=== PATIENT | female | born 1950 | race Caucasian/White ===

== ENCOUNTER → 2024-12-29 | Outpatient (CLI) | payer MEDICARE, OTHER ==
--- NOTE | 2024-12-29 15:17 | CT ---
EXAMINATION TYPE: CT shoulder LT wo con DATE OF EXAM: 12/29/2024 COMPARISON: None CLINICAL INDICATION: Female, 74 years old with history of M19.012 PRIMARY OSTEOARTHRITIS. LEFT SHOULD ER; H, CT DLP: mGycm Automated exposure control for dose reduction was used. FINDINGS: There is marked thinning of the glenohumeral joint space with near [id number] configuration. There is marked hypertrophic spurring of the humeral head. There is mild joint space narrowing of the AC joint. There is no acute fracture or dislocation. There are no soft tissue abnormalities. IMPRESSION: Marked osteoarthritis of the glenohumeral joint No acute trauma. [facility], Workstation: [facility], 12/29/2024 3:15 PM
== END | disposition home or self-care (01) ==
LOC: RADCTMAIN 14:12
PROVIDERS: ATTEND Orthopaedic Surgery Sports Medicine
DX: M19.012 Primary osteoarthritis, left shoulder (principal)

== ENCOUNTER → 2024-12-29 | Outpatient (CLI) | payer MEDICARE, OTHER ==
[2024-12-29 15:40] LABS: INR 0.9 (<1.2); Partial Thromboplastin Time 23.3 sec (22.0-30.0); Prothrombin Time 10.6 sec (10.0-12.5)
[2024-12-29 18:00] LABS: HCT 29.3 % (37.2-46.3); MCH 25.9 pg (27.0-32.0); MCHC 30.7 g/dL (32.0-37.0); MCV 84.2 FL (80.0-97.0); Mean Platelet Volume 10.7 FL (9.5-12.2); NRBC Per 100 WBC 0 X 10*3/uL (0.00-0.01); Platelet Count 301 X 10*3/uL (140-440); RBC 3.48 X 10*6/uL (4.10-5.20); RDW 15.1 % (11.5-14.5); WBC 6.96 X 10*3/uL (4.50-10.00)
[2024-12-29 18:11] LABS: ALT 26 U/L (8-44); AST 31 U/L (13-35); Alkaline Phosphatase 114 U/L (41-126); Blood Urea Nitrogen 27.6 mg/dL (9.0-27.0); Chloride 108 mmol/L (96-109); Globulin 2.1 g/dL (1.6-3.3); Glucose 96 mg/dL (70-110); Potassium 4.6 mmol/L (3.5-5.5); Sodium 141 mmol/L (135-145); Total Bilirubin 0.2 mg/dL (0.3-1.2); Total Protein 6.1 g/dL (6.2-8.2)
== END | disposition home or self-care (01) ==
LOC: LABPAT 14:45
PROVIDERS: ATTEND Orthopaedic Surgery Sports Medicine
DX: Z01.818 Encounter for other preprocedural examination (principal); M19.012 Primary osteoarthritis, left shoulder; R94.31 Abnormal electrocardiogram [ECG] [EKG]; Z22.322 Carrier or suspected carrier of Methicillin resistant Staphylococcus aureus
CPT/HCPCS: 80053; 85027; 85610; 85730; 87070

== ENCOUNTER 2025-01-14 05:52 | Day surgery (SDC) | payer MEDICARE, OTHER ==
[~2025-01-14 05:52] MED LIST: LIDOCAINE 1% (10MG/ML) FOR IV START INTRADERMA PRN; ONDANSETRON 4 MG/2 ML VIAL IVP PRN; TRANEXAMIC 1,000 MG/100ML-NACL 1,000 MG in SALINE 1 100ML.BAG IVPB PRN
[2025-01-14] MEDS: IV FLUID CONTINUATION 1,000 ML IV ONE ×2 (07:00→09:27)
[2025-01-14] MEDS ORDERED: HYDROmorphone 0.5 MG/0.5 ML SYRINGE IVP PRN ×4 (07:00→07:24)
[2025-01-14] MEDS ORDERED: fentaNYL (PF) 50 MCG/ML 2 ML AMP IVP PRN (07:00)
[2025-01-14] MEDS: LACTATED RINGERS 1,000 ML IV SCH (07:04)
[2025-01-14] MEDS: ONDANSETRON 4 MG/2 ML VIAL IVP ONE (07:10)
[2025-01-14] MEDS: DEXAMETHASONE SOD PHOSPHATE 4 MG/ML 1 ML VIAL IV ONE (07:10)
[2025-01-14] MEDS: ACETAMINOPHEN TAB 500 MG TAB PO PRN (07:10)
[2025-01-14] MEDS: GABAPENTIN 300 MG CAP PO PRN (07:11)
[2025-01-14] MEDS: MELOXICAM 7.5 MG TAB PO PRN (07:11)
[2025-01-14] MEDS ORDERED: diphenhydrAMINE 25 MG CAP PO PRN (07:24)
[2025-01-14] MEDS ORDERED: ONDANSETRON 4 MG/2 ML VIAL IVP PRN (07:24)
[2025-01-14] MEDS ORDERED: SENNOSIDES-DOCUSATE SODIUM 1 EACH TAB PO PRN (07:24)
[2025-01-14] MEDS ORDERED: LACTATED RINGERS 1,000 ML IV SCH (07:30)
[2025-01-14] MEDS: MIDAZOLAM 2 MG/2 ML VIAL IV PRN (07:32)
[2025-01-14] MEDS ORDERED: LIDOCAINE 1% INJ 10MG/ML (20 ML MDV) ONE (07:53)
[2025-01-14] MEDS ORDERED: GLYCOPYRROLATE 0.2 MG/ML 2 ML VIAL ONE (07:53)
[2025-01-14] MEDS ORDERED: PHENYLEPHRINE-0.9% NACL SYG 1,000 MCG/10 ML SYRINGE ONE (07:53)
[2025-01-14] MEDS ORDERED: SUCCINYLCHOLINE CHLORIDE 200 MG/10 ML VIAL IV ONE (07:53)
[2025-01-14] MEDS ORDERED: PHENYLEPHRINE 10 MG/ML VIAL ONE (07:53)
[2025-01-14] MEDS ORDERED: NEOSTIGMINE 1 MG/ML 10 ML VIAL ONE (07:53)
[2025-01-14] MEDS ORDERED: ROPIVACAINE 5 MG/ML 30 ML VIAL ONE (07:53)
[2025-01-14] MEDS ORDERED: DEXAMETHASONE SOD PHOSPHATE 4 MG/ML 1 ML VIAL ONE (07:53)
[2025-01-14] MEDS ORDERED: fentaNYL (PF) 50 MCG/ML 2 ML AMP ONE (07:53)
[2025-01-14] MEDS ORDERED: TRANEXAMIC 1,000 MG/100ML-NACL PREMIX BAG ONE (07:53)
[2025-01-14] MEDS ORDERED: ROCURONIUM 10 MG/ML (5 ML VIAL) IV ONE (07:53)
[2025-01-14] MEDS ORDERED: PROPOFOL 10 MG/ML 20 ML VIAL IV ONE (07:53)
[2025-01-14] MEDS: ceFAZolin 2 GM in DEXTROSE 5% IN WATER 50 ML IVPB PRN (07:56)
[2025-01-14] MEDS: VANCOMYCIN 1,000 MG VIAL MISCELLANE ONE (09:27)
[2025-01-14 09:53] VITALS: TEMP 97.5
--- NOTE | 2025-01-14 10:56 | XR ---
EXAMINATION TYPE: XR shoulder limited LT DATE OF EXAM: 01/14/2025 COMPARISON: CT left shoulder December 29, 2024 CLINICAL INDICATION: Female, 74 years old with history of post op; pain and osteoarthritis. TECHNIQUE: Single portable view of the left shoulder is obtained immediately postoperatively. FINDINGS: Metallic artifact from reverse total left shoulder arthroplasty is now present and satisfac tory in position. Evidence of recent surgery with subcutaneous gas just below the acromion. IMPRESSION: As above. [facility], , 01/14/2025 10:53 AM
--- NOTE | 2025-01-14 14:23 | OP ---
OPERATIVE REPORT DATE OF SERVICE : 01/14/2025 PREOPERATIVE DIAGNOSIS: Left shoulder advanced osteoarthrosis. POSTOPERATIVE DIAGNOSES: 1. Left shoulder advanced osteoarthrosis. 2. Left shoulder chronic complete supraspinatus tear. OPERATION: Left reverse total shoulder arthroplasty. ESTIMATED BLOOD LOSS: 100 mL. SPECIMEN TAKEN: ANESTHESIA: General endotracheal. DRAINS: None. COMPLICATIONS: None apparent. DISPOSITION: Postanesthesia care unit. INDICATIONS: Loni is a very pleasant 74-year-old female with longstanding left shoulder pain. Workup including x-rays and CT scan revealed advanced osteoarthrosis of the left shoulder. At this point, it has felt that she has failed conservative management. She would like to proceed with operative intervention. Risks of procedure were discussed with her in detail. These risks include, but are not limited to risk of infection, nerve damage, bleeding, pain, instability in the shoulder, loosening of the implants, and deep infection. There is also small risk of deep vein thrombosis, which could lead to fatal pulmonary embolism. The patient understood these risks. All of her questions with regard to the risks of procedure were answered to her satisfaction. Appropriate informed consent was obtained. NARRATIVE: The patient was identified in preoperative holding area. Surgical site was marked by both the patient and myself. She was given 2 g of Ancef for IV prophylactic purposes. She was then transported to the operative suite. She was placed supine on the operating table. General anesthetic was then administered and dosed per the Anesthesia Department without apparent complication. Examination under anesthesia was then performed of the left shoulder. She had elevation to 120 degrees. External rotation of the side was to 30 degrees. The patient was then placed in the beach chair position, well-padded in preparation for surgery. Great care was taken to ensure that her C-spine was in neutral alignment, well-padded and maintained that way throughout the operative procedure. Great care was also taken to ensure that her legs were appropriately padded as well. The patient's left upper extremity was then prepped and draped in the usual sterile fashion. Standard surgical pause was undertaken to ensure that we were operating the correct site and that appropriate preoperative antibiotics were given. All staff were in agreement and we proceeded. The acromion AC joint clavicle and coracoid were marked with a surgical pen. A planned incision starting at the level of clavicle and extending distally over the deltopectoral interval approximately 1 cm lateral to the coracoid was marked with a surgical pen. The incision was then made with a 10-blade scalpel. Dissection was carried down sharply to the deltoid fascia. The deltopectoral interval was then identified at the level of the clavicle. A small band retractor was then placed onto the proximal deltoid. I then released the deltoid fascia on the lateral aspect of the cephalic vein. The vein was then left in its bed medially. The cephalic vein was then protected throughout the entire case. I then identified the clavipectoral fascia. This was incised proximally to the level of the coracoacromial ligament. The coracoacromial ligament was left intact. I then used my finger to spread the interval between the conjoint tendon and subscapularis. I felt for the axillary nerve, which was readily palpable. I then cleared the subacromial and subdeltoid spaces of bursal and scar tissue. I then utilized a brown retractor to hold the deltoid and expose the humeral head. I then proceeded to release the subscapularis and anteroinferior shoulder capsule. The rotator cuff was inspected. There was very large supraspinatus tear, which was chronic and retracted. The rotator interval was identified. The course of the biceps tendon was then also identified. The biceps had traumatically ruptured previously. I then released the rotator interval. This was released at the base of the coracoid and then out laterally. The subscapularis and capsule were then released intertendinously. The subscapularis and capsule release extended distally in a lazy-S fashion approximately 1 cm medial to the bicipital groove. I then continued to release the capsule along the inferior neck in a vertical fashion to approximately 6 o'clock position. Great care was taken to ensure the capsule was always visualized. It was released as to avoid injuring the axillary nerve. I then brought a Wellington wrapping clerk with the arm externally rotated and abducted. Continued to release the capsule inferomedially to the 4 o'clock position. The inferior osteophytes were now removed as well. This was done using a rongeur. I then proceeded with preparation of the humerus. I removed all the goat's layton osteophytes. I then removed the subchondral plate from the superior aspect of the humeral head utilizing a large rongeur. I then used a starting reamer to gain access to the humeral canal. This was 1 cm medial to the prior rotator cuff insertion and 1 cm posterior to the bicipital groove. I then prepared the humeral canal with hand reaming. I started with a 6 mm reamer and incrementally increased until firm resistance was encountered at 12 mm. The reamer handle was then left in place. I then used a humeral resection guide set at 30 degrees of retrotorsion. The cutting block was then set at the prior insertion of rotator cuff. I then proceeded to osteotomize the head with an oscillating saw. I removed the resection guide and then completed the osteotomy. I then proceeded with trial stem placement. The trial size 12 was then broached in the canal. The 12 mm trial broach was then left in place. I then pull the humerus out laterally. I inspected the joint for any loose bodies. The condition of the cuff was again inspected. Again, she had a chronic large rotator cuff tear. I made a decision to proceed with a reverse total shoulder arthroplasty. The Bhattman retractor was then placed on the posterior glenoid rim. The arm was placed approximately 80 degrees of abduction and in slight flexion on the Wellington stand. I then proceeded to remove the hypertrophic labrum to definitively identify the actual glenoid. I then used a mini base plate guide. This was placed as inferior as possible. The pin was then placed at approximately just inferior central of the glenoid in approximately 10 degrees of inferior tilt. I then proceeded to ream it. She did have quite a bit of posterior wear. The reaming was approximately 25% on posterosuperior aspect, was relatively unreamed after the reaming. I did use to place a small augment trial. This filled that void quite nicely. I then had the compliance representative open a E[employer] mini base plate with a small augment. The augment was oriented posterosuperior and then the real base plate was then impacted into the glenoid. I then measured for the central screw. A 25 mm central screw was measured. I placed a 25 mm central screw. She had excellent purchase in bone. I was able to rotate the scapula through the screwdriver when it was fully seated. I then ensured the screw was fully seated utilizing the guide to check. I then placed peripheral locking screws. The inferior, anterior and superior screws were all 15 mm screws. The posterior superior screw we did not place. I then had the compliance representative open a 36 mm glenosphere. This was slightly offset inferiorly. The Cruz taper was dried and the real glenosphere was then impacted onto the real base plate. I then proceeded with trial. I started with a standard tray, standard poly. It was a mildly difficult reduction, appears stable throughout a full range of motion. There was not any undue tension on the conjoint tendon. There was no impingement noted. I made a decision to proceed with a standard tray, standard poly. The shoulder was then very carefully redislocated. We did use the IrriSept antiseptic solution at this point in time. The wound was also thoroughly irrigated with sterile saline solution with antibiotic added via pulse lavage. We then had the compliance representative open a size 12 Biomet mini stem, a standard tray and a standard poly for 36 mm glenosphere. The stem was then impacted into the proximal humerus in approximately 30 degrees of retrotorsion. The Cruz taper was dried and then the standard tray, standard poly was then impacted onto the stem. The shoulder was then carefully reduced. Again, it was a mildly difficult reduction. It was very stable. It was stable through a full range of motion without impingement noted. The conjoint tendon did not show any undue tension. The axillary nerve was felt for and it was readily intact and seeming uninjured. At this point in time, no further work deemed necessary. The shoulder was again thoroughly irrigated. We used the remaining IrriSept solution at this time. Approximately 500 mg of vancomycin powder was then placed deep. The deltopectoral interval was reapproximated with 0 Vicryl interrupted suture. The subcutaneous tissue was irrigated and the remaining 500 mg of vancomycin powder was placed subcutaneously. The subcutaneous tissue was closed with 2-0 Vicryl interrupted suture. The skin was closed with a running 3-0 Quill suture. Dermabond was applied to the incision. Sterile dressing was applied. The patient's left upper extremity was placed in a standard sling. All sponge and needle counts were deemed correct prior to closure. The patient tolerated the procedure without apparent complication. She was transferred to recovery room in stable condition. MMODL / IJN: [id number] /
[2025-01-14 14:32] VITALS: BP 158/84; PULSE 63; RESP 16
--- NOTE | 2025-01-14 19:57 | P.ANPRN ---
Procedure Note - Anesthesia - Nerve Block Performed Left Interscalene Single Time Out Performed: Yes Date of Procedure: 01/14/25 Procedure Start Time: : Procedure Stop Time: 07:36 Location of Patient: PreOp Indication: Acute Post-Operative Pain, Requested by Surgeon Sedation Type: Sedate with meaningful contact maintained Preparation: Sterile Prep Position: Supine Needle Types: Pajunk Needle Gauge: 21 Ultrasound used to visualize needle placement: Yes Ultrasound used to observe medication spread: Yes Blood Aspirated: No Pain Paresthesia on Injection Noted: No Resistance on Injection: Normal Image Stored and Saved: Yes Events: Uneventful and Well Tolerated (Ropivacaine 0.5% 20 cc was dexamethasone 4 mg)
== END 2025-01-14 14:45 | disposition home or self-care (01) ==
LOC: OR 05:52
PROVIDERS: ATTEND Orthopaedic Surgery Sports Medicine
DX: M19.012 Primary osteoarthritis, left shoulder (principal); M75.122 Complete rotator cuff tear or rupture of left shoulder, not specified as traumatic; G89.18 Other acute postprocedural pain; I10 Essential (primary) hypertension; E78.5 Hyperlipidemia, unspecified; E03.9 Hypothyroidism, unspecified; M81.0 Age-related osteoporosis without current pathological fracture; Z79.1 Long term (current) use of non-steroidal anti-inflammatories (NSAID); Z79.890 Hormone replacement therapy; Z79.899 Other long term (current) drug therapy; Z88.6 Allergy status to analgesic agent; Z88.0 Allergy status to penicillin; Z88.8 Allergy status to other drugs, medicaments and biological substances
CPT/HCPCS: 23472; 64415; 86900; 86901; 86850; 73020; C1776; J2250; J3370; J0330; J1100; J2710; J0690; J2405; J2003; J3010; J2795; J2704; J2371 ×2; J1596